=== PATIENT | male | born 1995 | race Two or more races ===

== ENCOUNTER 2022-09-01 22:25 | Emergency (ER) | payer OTHER ==
[~2022-09-01] VITALS: Ht 170.2 cm; Wt 59.0 kg
[2022-09-01 22:40] VITALS: BP 153/87
[2022-09-01 23:19] LABS: Basophils # (auto) 0.1 10 ^3/uL (0-0.2); Basophils % (auto) 0.8 % (0.0-2.0); Eosinophils # (auto) 0.3 10 ^3/uL (0-0.8); Eosinophils % (auto) 5.4 % (0.0-7.0); Hematocrit 47.6 % (41.0-53.0); Hemoglobin 15.6 g/dL (13.5-17.5); Lymphocytes # (auto) 2.3 10 ^3/uL (0.4-5.4); Mean Corpuscular Hgb Conc. 32.7 g/dL (32.0-36.0); Mean Corpuscular Volume 91.8 fL (80.0-100.0); Monocytes # (auto) 0.7 10 ^3/uL (0-1.3); Monocytes % (auto) 11.2 % (0.0-12.0); Neutrophils # (auto) 3.1 10 ^3/uL (1.6-8.6); Neutrophils % (auto) 47.6 % (37.0-80.0); Nucleated Red Blood Cells % 0.2 %; Red Blood Cells 5.19 10^6/uL (4.5-5.90); Red Cell Distribution Width 13.5 % (11.8-14.3); White Blood Cell 6.5 10^3/uL (4.4-10.8)
[2022-09-01 23:39] LABS: Albumin 4.1 g/dL (3.4-5.0); BUN/Creatinine Ratio 14.7; Calcium 9.7 mg/dL (8.5-10.1); Potassium 3.7 mmol/L (3.5-5.1)
[2022-09-01 23:43] LABS: Bilirubin, Total 0.3 mg/dL (0.2-1.0); Total Protein 7.1 g/dL (6.4-8.2)
== END 2022-09-02 04:50 | disposition home or self-care (01) ==
LOC: ER 22:28
DX: R07.89 Other chest pain (principal); R00.2 Palpitations
CPT/HCPCS: 36415; 71045; 80053; 84484; 85025; 93005

== ENCOUNTER 2024-03-05 12:05 | Emergency (ER) | payer MEDICAID ==
[~2024-03-05] VITALS: Ht 170.2 cm; Wt 61.8 kg
[2024-03-05] MEDS ORDERED: NAPR-746 PO (13:18)
[2024-03-05] MEDS ORDERED: CEPH500C PO (13:18)
[2024-03-05 13:31] VITALS: BP 130/89; PULSE 77; RESP 16; TEMP 98.2; O2SAT 98
== END 2024-03-05 13:36 | disposition home or self-care (01) ==
LOC: ER 12:12
DX: I88.9 Nonspecific lymphadenitis, unspecified (principal); H66.91 Otitis media, unspecified, right ear; Z88.0 Allergy status to penicillin; Z79.899 Other long term (current) drug therapy

== ENCOUNTER 2024-03-20 14:09 | Emergency (ER) | payer MEDICAID ==
[~2024-03-20] VITALS: Ht 170.2 cm; Wt 60.0 kg
[~2024-03-20 14:09] MED LIST: CEPH500C PO; NAPR-746 PO
[2024-03-20 15:13] VITALS: BP 107/60; PULSE 75; RESP 18; TEMP 98.2; O2SAT 97
[2024-03-20] MEDS ORDERED: MELO7.5T7 PO (15:17)
== END 2024-03-20 15:23 | disposition home or self-care (01) ==
LOC: ER 14:09
DX: I88.9 Nonspecific lymphadenitis, unspecified (principal); Z88.0 Allergy status to penicillin

== ENCOUNTER 2024-11-03 17:29 | Inpatient (IN) | payer MEDICAID, OTHER ==
[~2024-11-03] VITALS: Ht 170.2 cm; Wt 64.0 kg
[~2024-11-03 17:29] MED LIST changes: +MELO7.5T7 PO
--- NOTE | 2024-11-03 18:08 | ED.PDOC ---
General HPI Comments HPI: Poor Historian. 29-year-old male presents to emergency department for evaluation of right flank pain that started this morning that was severe in nature intermittent. Patient went to the restroom and noted hematuria. This never happened before. Denies any history of kidney stones. Patient had some nausea and some vomiting which has resolved prior to my evaluation. Past Medical History: Past Surgical History: REVIEW OF SYSTEMS: CONSTITUTIONAL: Denies acute: fever, diaphoresis, chills, generalized weakness. HEAD: Denies acute: headache, photophobia Eyes: Denies acute: Double vision, vision loss, eye pain, eye discharge. EARS: Denies acute: tinnitus, hearing loss, ear discharge, ear pain, THROAT: Denies acute: sore throat, swelling, difficulty swallowing , pain with swallowing, change in voice. NECK: Denies acute: neck pain, neck swelling, stiff neck. HEART: Denies acute : chest pain, palpitations, LUNGS: Denies acute: SOB, wheezing, cough, hemoptysis ABDOMEN: Denies acute: abdominal pain, diarrhea, melena , hematemesis, hematochezia SKIN: Denies acute: rash, redness, lesions, itchiness. EXTREMITIES: Denies acute: calf pain, numbness, tingling, weakness, denies pain in extremity. Denies acute: Low back pain. Neuro: Denies acute: focal neurological deficit, motor or sensory focal neurological deficit, tremors, seizure like activity, confusion, dizziness, change in mental status, loss of bowel or bladder function, cauda equina like symptoms. : Denies acute: dysuria, increase in urinary frequency. PSYCH: Denies acute: hallucination, suicidal ideation, homicidal ideation. PHYSICAL EXAM: General: [id number] acute distress, awake and alert. Head: normocephalic, atraumatic. Neck: supple, trachea is midline, no swelling. Throat: Normal phonation. Eyes:, no erythema, no purulent discharge, no proptosis, no icterus. Heart: regular rate, regular rhythm, no significant murmur appreciated. Lungs: no apparent respiratory distress, Able to speak in full sentences. No wheezing, no rhonchi, no crackles. No stridors Clear to auscultation bilaterally. Abdomen: non tender to palpation, non distended, soft, no guarding, no rebound, + bowel sounds. Neuro: Awake, Alert, oriented to name, self, situation, follows commands GCS=15. Speech is normal. Skin: no petechia, no purpura, no cyanosis, non-pale, not jaundice. Lower extremities: --no - Pitting edema no deformity, no focal swelling, no calf TTP. Makes eye contact. moves all four extremities. Face: no apparent facial droop. Right CVA tenderness to percussion Ambulating in the ED independently. ED COURSE: Chief Complaint: Urinary Time Seen by MD: 17:32 Primary Care Provider: HAMIDA Reviewed notes: Nurses Notes, Medications, Allergies Allergies: Coded Allergies: Penicillins (Verified Allergy, Unknown, 03/05/24) Home Meds Active Scripts Meloxicam (Meloxicam) 7.5 Mg Tab, 1 TAB PO DAILYP PRN for 30 Days, #30 TAB 0 Refills Prov:TONNY PENA NP 03/20/24 Cephalexin Monohydrate (Cephalexin) 500 Mg Cap, 1 CAP PO TID, #30 CAP Prov:WILBER RAYGOZA 03/05/24 Naproxen (Naproxen) 500 Mg Tab, 500 MG PO BID, #30 TAB Prov:WILBER RAYGOZA 03/05/24 Information Source: Patient Mode of Arrival: Ambulatory Past Medical History PAST MEDICAL HISTORY: Denies Surgical History: Denies all surgeries Family History Family History: Reviewed,noncontributory to illness Social History Smoker: Non-Smoker Alcohol: Denies ETOH Use Drugs: Denies Drug Use Lives In: Home Was a procedure done? Was a procedure done?: No Differential Diagnosis Kidney stone (Female): N/A Kidney stone (Male): Other (Flank Pain;DDX include Nephrolethiasis, obstructive uropathy, kidney cancer, renal infarct, intraabdominal neoplasm, lower lobe pneumonia, retroperitoneal hemorrhage, pancreatitis, aneurysm, dissection, musculoskeletal, rib contusion/trauma, hematoma, PYLONEPHRITIS, muscle strain, spinal disease. IN A FEMALE) X-Ray, Labs, Meds, VS Vital Signs Date Time Temp Pulse Resp B/P (MAP) Pulse Ox O2 Delivery O2 Flow Rate FiO2 11/03/24 19:53 62 16 96 Room Air* 0 21 11/03/24 19:48 99.0 64 16 117/80 (92) 97 99.0 11/03/24 17:45 98.3 61 18 136/88 (104) 98 98.3 Lab Test 11/03/24 19:37 11/03/24 18:10 Range/Units Urine Color Colorless Yellow Urine Clarity Clear Clear Urine pH 6.0 5.0-9.0 Urine Specific [place] 1.003 1.001-1.035 Urine Protein Negative Negative Urine Ketones Negative Negative Urine Blood 3+ H Negative /uL Urine Nitrite Negative Negative Urine Bilirubin Negative Negative Urine Urobilinogen Normal Negative mg/dL Urine Leukocyte Esterase Negative Negative /uL Urine RBC 3 0 - 3 /hpf Urine Microscopic WBC 1 0-3 /HPF Urine Squamous Epithelial Cells None seen <5 /hpf Urine Bacteria Few H None Seen /hpf Urine Glucose Normal Normal mg/dL White Blood Count 11.4 H 4.4-10.8 10^3/uL Red Blood Count 5.36 4.5-5.90 10^6/uL Hemoglobin 16.1 13.5-17.5 g/dL Hematocrit 48.3 41.0-53.0 % Mean Corpuscular Volume 90.2 80.0-100.0 fL Mean Corpuscular Hemoglobin 30.1 28.0-32.0 pg Mean Corpuscular Hemoglobin Concent 33.4 32.0-36.0 g/dL Red Cell Distribution Width 14.5 H 11.8-14.3 % Platelet Count 185 140-450 10^3/uL Mean Platelet Volume 8.4 6.9-10.8 fL Neutrophils (%) (Auto) 81.8 H 37.0-80.0 % Lymphocytes (%) (Auto) 10.1 10.0-50.0 % Monocytes (%) (Auto) 7.3 0.0-12.0 % Eosinophils (%) (Auto) 0.5 0.0-7.0 % Basophils (%) (Auto) 0.3 0.0-2.0 % Neutrophils # (Auto) 9.4 H 1.6-8.6 10 ^3/uL Lymphocytes # (Auto) 1.2 0.4-5.4 10 ^3/uL Monocytes # (Auto) 0.8 0-1.3 10 ^3/uL Eosinophils # (Auto) 0.1 0-0.8 10 ^3/uL Basophils # (Auto) 0 0-0.2 10 ^3/uL Nucleated Red Blood Cells 0.0 % Sodium Level 136 136-145 mmol/L Potassium Level 3.8 3.5-5.1 mmol/L Chloride Level 101 98-107 mmol/L Carbon Dioxide Level 28 20-31 mmol/L Anion Gap 7 5-15 Blood Urea Nitrogen 12 9-23 mg/dL Creatinine 1.00 0.700-1.30 mg/dL Glomerular Filtration Rate Calc 105 >90 mL/min BUN/Creatinine Ratio 12.0 10.0-20.0 Serum Glucose 129 H 74-106 mg/dL Lactic Acid Level 1.5 0.4-2.0 mmol/L Calcium Level 9.8 8.7-10.4 mg/dL Total Bilirubin 0.5 0.2-1.0 mg/dL Aspartate Amino Transferase (AST) 15 13-40 U/L Alanine Aminotransferase (ALT) 28 7-40 U/L Alkaline Phosphatase 71 46-116 U/L Total Protein 7.2 5.7-8.2 g/dL Albumin 4.7 3.2-4.8 g/dL Current Medications Medications (Trade) Dose Ordered Sig/Julianna Route Start Time Stop Time Status Last Admin Sodium Chloride 1,000 ml @ 1,000 mls/hr Q1H ONCE IV 11/03/24 18:45 11/03/24 19:44 DC 11/03/24 19:47 [place] [id number] Ph: [phone] DIAGNOSTIC IMAGING Diagnostic Imaging Report : [id number] Signed PATIENT: JOANNA HUIZAR MACCT: [id number] UNIT: [id number] : 1995 LOC: ER ROOM / BED: / AGE / SEX: 29 / M ADM STATUS: REG ER SERVICE [id number] ORDERING PHYSICIAN: KAITLYN LIZ DO PROCEDURE(s): ABPL - CT AB PEL WO CON-NO ORAL OR IV REASON: Hematuria, low back pain ORDER NUMBER(s): [id number], ACCESSION NUMBER(s): [id number] Exam: CT CT AB PEL WO CON-NO ORAL OR IV History: Hematuria, low back pain Comparison Study: None available at time of dictation. TECHNIQUE: Multidetector CT of the abdomen was performed from lung bases to pubic symphysis. Imaging was performed without IV contrast. Axial, coronal and sagittal multiplanar reformats were obtained from the axial data set by the technologist. Radiation Dose Information: CT Dose: CTDI volume is 5.22 mGy. Dose-length product is 275.1 mGy*cm FINDINGS: Evaluation of solid organs is limited due to lack of intravenous contrast use. Findings: Lung Bases: No acute or significant lung base finding. Normal heart size. No pleural or pericardial effusion. Liver: The liver is normal in size. No focal lesions. Gallbladder and Biliary Tree: Unremarkable Spleen: Unremarkable Pancreas: The pancreas is grossly normal in appearance. Adrenal Glands: Unremarkable Kidneys: 3 nonobstructing right renal calculi with mild right hydronephrosis and a 5-6 mm calculus in the proximal right ureter. 5 intrarenal calculi on the left largest measures 7-8 mm. Bladder: Grossly unremarkable for degree of distention. Bowel: The stomach is grossly normal in appearance. Small bowel and colon are normal in caliber and distribution. The appendix is not visualized; however, no secondary findings of acute appendicitis identified. Ascites: Absent Lymphadenopathy: No mesenteric, retroperitoneal or periportal lymphadenopathy. Abdominal Wall and Mesentery: Unremarkable. Vasculature: The visualized abdominal aorta is normal in size and caliber. Evaluation of abdominal and pelvic vessels is limited due to lack of intravenous contrast. Pelvic Organs: Unremarkable Musculoskeletal: No aggressive focal bony lesions, acute fractures or dislocation. Soft tissues: Unremarkable IMPRESSION: 1. 3 nonobstructing calculi in the right kidney. There is a 5-6 mm partially obstructing calculus in the proximal right ureter. 2. There are 5 calculi in the left kidney largest measures 7-8 mm. 3. No bladder calculi. Radiation optimization: All CT scans at this facility use at least one of these dose optimization techniques: automated exposure control mA and/or kV adjustment per patient size (includes targeted exams where dose is matched to clinical indication) or iterative reconstruction. ATED BY: BALJINDER CAICEDO Jr., DO DICTATED DATE/TIME: 11/03/241825 SIGNED BY: BALJINDER CAICEDO Jr., DO SIGNED DATE/TIME: 11/03/241825 CC: Time of 1ST Reevaluation: 20:06 Reevaluation 1ST: Improved Patient Education/Counseling: Diagnosis, Treatment Family Education/Counseling: No Family Present Comments Patient presented with the above HPI.-flank pain hematuria-----workup was initiated. patient was found with the above mentioned diagnosis. the following medications were ordered: please refer to order lists of meds and tests obtained by myself Dr. Liz. Patient ED course and VS have been stabilized. Patient has been reassessed in the ED and remained in a stable condition. Pertinent incidental findings were discussed with the patient and/or family. Patient/family voices understanding and is agreeable with plan. Patient has been observed in the ED adequate length of time to insure improvement/stability. Escalation of care considered: Consideration of escalation to observation or admission Patient was ADMITTED to the medicine team for further evaluation and treatment of their presentation. All the reports of any imaging studies that were ordered by myself were reviewed by myself. Departure 1 Departure Time of Disposition: 18:43 Impression: Primary Impression: Urinary tract obstruction by kidney stone Additional Impression: Bacteriuria Disposition: ADMITTED INPATIENT Admit to: Tele Condition: Guarded Discharged With: Self Critical Care Note Critical Care Time?: No KAITLYN LIZ DO Nov 03, 2024 18:08
[2024-11-03 18:26] LABS: Basophils # (auto) 0 10 ^3/uL (0-0.2); Basophils % (auto) 0.3 % (0.0-2.0); Eosinophils # (auto) 0.1 10 ^3/uL (0-0.8); Eosinophils % (auto) 0.5 % (0.0-7.0); Hematocrit 48.3 % (41.0-53.0); Hemoglobin 16.1 g/dL (13.5-17.5); Lymphocytes # (auto) 1.2 10 ^3/uL (0.4-5.4); Lymphocytes % (auto) 10.1 % (10.0-50.0); Mean Corpuscular Hemoglobin 30.1 pg (28.0-32.0); Mean Corpuscular Hgb Conc. 33.4 g/dL (32.0-36.0); Mean Corpuscular Volume 90.2 fL (80.0-100.0); Monocytes # (auto) 0.8 10 ^3/uL (0-1.3); Monocytes % (auto) 7.3 % (0.0-12.0); Neutrophils # (auto) 9.4 10 ^3/uL (1.6-8.6); Neutrophils % (auto) 81.8 % (37.0-80.0); Platelet Count (auto) 185 10^3/uL (140-450); Red Blood Cells 5.36 10^6/uL (4.5-5.90); Red Cell Distribution Width 14.5 % (11.8-14.3); White Blood Cell 11.4 10^3/uL (4.4-10.8)
--- NOTE | 2024-11-03 18:28 | DVH ---
Exam: CT CT AB PEL WO CON-NO ORAL OR IV History: Hematuria, low back pain Comparison Study: None available at time of dictation. TECHNIQUE: Multidetector CT of the abdomen was performed from lung bases to pubic symphysis. Imaging was performed without IV contrast. Axial, coronal and sagittal multiplanar reformats were obtained fr om the axial data set by the technologist. Radiation Dose Information: CT Dose: CTDI volume is 5.22 mGy. Dose-length product is 275.1 mGy*cm FINDINGS: Evaluation of solid organs is limited due to lack of intravenous contrast use. Findings: Lung Bases: No acute or significant lung base finding. Normal heart size. No pleural or pericardial effusion. Liver: The liver is normal in size. No focal lesions. Gallbladder and Biliary Tree: Unremarkable Spleen: Unremarkable Pancreas: The pancreas is grossly normal in appearance. Adrenal Glands: Unremarkable Kidneys: 3 nonobstructing right renal calculi with mild right hydronephrosis and a 5-6 mm calculus in the proximal right ureter. 5 intrarenal calculi on the left largest measures 7-8 mm. Bladder: Grossly unremarkable for degree of distention. Bowel: The stomach is grossly normal in appearance. Small bowel and colon are normal in caliber and d istribution. The appendix is not visualized; however, no secondary findings of acute appendicitis id entified. Ascites: Absent Lymphadenopathy: No mesenteric, retroperitoneal or periportal lymphadenopathy. Abdominal Wall and Mesentery: Unremarkable. Vasculature: The visualized abdominal aorta is normal in size and caliber. Evaluation of abdominal a nd pelvic vessels is limited due to lack of intravenous contrast. Pelvic Organs: Unremarkable Musculoskeletal: No aggressive focal bony lesions, acute fractures or dislocation. Soft tissues: Unremarkable IMPRESSION: 1. 3 nonobstructing calculi in the right kidney. There is a 5-6 mm partially obstructing calculus in the proximal right ureter. 2. There are 5 calculi in the left kidney largest measures 7-8 mm. 3. No bladder calculi. Radiation optimization: All CT scans at this facility use at least one of these dose optimization te chniques: automated exposure control mA and/or kV adjustment per patient size (includes targeted exa ms where dose is matched to clinical indication) or iterative reconstruction.
[2024-11-03 18:44] LABS: Alanine Aminotransferase 28 U/L (7-40); Albumin 4.7 g/dL (3.2-4.8); Alkaline Phosphatase 71 U/L (46-116); Anion Gap 7 (5-15); Aspartate Aminotransferase 15 U/L (13-40); Blood Urea Nitrogen 12 mg/dL (9-23); Calcium 9.8 mg/dL (8.7-10.4); Carbon Dioxide 28 mmol/L (20-31); Chloride 101 mmol/L (98-107); Potassium 3.8 mmol/L (3.5-5.1); Sodium 136 mmol/L (136-145); Total Protein 7.2 g/dL (5.7-8.2)
[2024-11-03 18:45] LABS: Bilirubin, Total 0.5 mg/dL (0.2-1.0)
[2024-11-03 19:08] LABS: Glucose 129 mg/dL (74-106)
[2024-11-03 19:44] LABS: Urine Bacteria FEW /hpf (None Seen); Urine Blood 3+ /uL (Negative); Urine Clarity Clear (Clear); Urine Color Colorless (Yellow); Urine Protein, UAD Negative (Negative); Urine Specific Gravity 1.003 (1.001-1.035); Urine Squamous Epithelial Cell None Seen /hpf (<5); Urine Urobilinogen Normal (Negative); Urine WBC 1 /HPF (0-3)
[2024-11-03] MEDS: fentaNYL CITRATE 100 MCG/2 ML VL IV ONE (19:45)
[2024-11-03] MEDS: ONDANSETRON HCL 4 MG/2 ML VIAL IV ONE (19:46)
[2024-11-03] MEDS: SODIUM CHLORIDE 0.9% 1,000 ML IV ONE (19:47)
[2024-11-03 19:53] VITALS: PULSE 62; RESP 16; O2SAT 96
[2024-11-03] MEDS: TAMSULOSIN HYDROCHLORIDE 0.4 MG CAP PO ONE (20:16)
[2024-11-03] MEDS ORDERED: ONDANSETRON HCL 4 MG/2 ML VIAL IV PRN (21:00)
[2024-11-03] MEDS ORDERED: ACETAMINOPHEN 325 MG TAB PO PRN (21:00)
[2024-11-03] MEDS ORDERED: DOCUSATE SOD 100 MG CAP PO PRN (21:00)
[2024-11-03] MEDS: SODIUM CHLORIDE 0.9% 1,000 ML IV SCH (21:40)
[2024-11-03] MEDS: cefTRIAXone 1GM/50ML D5W 50 ML IV ONE (21:41)
[2024-11-03] MEDS: HYDROcodone-ACET 5/325MG TAB PO PRN (21:51)
--- NOTE | 2024-11-03 22:37 | DVHHP2 ---
History of Present Illness Reason for Visit: Urinary tract obstruction by kidney stone History of Present Illness The patient is a 29-year-old male who denies past medical history presented to [facility] ED with complaint of right flank pain. Patient reports symptoms progressively get worse with hematuria, severe intermittent right flank pain, associated nausea, vomiting, getting worse that prompted this visit. Patient was seen and evaluated in the ED, laboratory data shows WBC 11.4, platelets 185, sodium 136, potassium 3.8, BUN 12, creatinine 1.00, GFR 105, glucose 129 abdomen/pelvis CT revealing 3 mm nonobstructing calculi in the right kidney, is a 5-6 mm partially obstructing calculus in the proximal right ureter five calculi in the left kidney largest measures 7-8 mm, no bladder calculi. Patient was started on IV antibiotic regimen levofloxacin, please see medication orders section in the computer. On my assessment, patient denied chest pain, no headache, no dizziness, abdominal pain, no flank pain, no nausea or vomiting at this moment, no fever, no chills. Patient was admitted for further evaluation medical management. Past Medical History Denies past medical history Past Surgical History Denies all surgeries Family History Reviewed, noncontributory to the management of this case. Past Social History The patient lives at home, denies smoking, alcohol or illicit drugs abuse. Review of Systems Constitutional: No: Fever, Chills, Sweats, Weakness, Malaise, Other Eyes: No: Pain, Vision change, Conjunctivae inflammation, Eyelid inflammation, Other, Redness ENT: No: Ear pain, Ear discharge, Nose pain, Nose discharge, Nose congestion, Mouth pain, Mouth swelling, Throat pain, Throat swelling, Other Respiratory: No: Cough, Dry, Shortness of breath, SOB with excertion, Wheezing, Hemoptysis, Pleuritic Pain, Sputum, Wheezing, Other Cardiovascular: No: Chest Pain, Palpitations, Orthopnea, Paroxysmal Noc. Dyspnea, Edema, Lt Headedness, Other Gastrointestinal: Nausea, Vomiting; No: Abdominal Pain, Diarrhea, Constipation, Melena, Hematochezia, Other Genitourinary: No Dysuria, No Frequency, No Incontinence, No Hematuria, No Retention; Other (Right flank pain) Musculoskeletal: No: other, neck pain, shoulder pain, arm pain, back pain, hand pain, leg pain, foot pain Skin: No: Rash, Lesions, Jaundice, Bruising, Other Neurological: No: Weakness, Numbness, Incoordination, Change in speech, Confusion, Seizures, Other Allergies: Coded Allergies: Penicillins (Verified Allergy, Unknown, 03/05/24) Medications Current Medications Medications Dose Ordered Sig/Julianna Route Start Time Stop Time Status Last Admin Dose Admin Tamsulosin HCl 0.4 mg QPM PO 11/04/24 18:00 Levofloxacin/ Dextrose 100 ml @ 100 mls/hr DAILY IV 11/04/24 10:00 UNV Sodium Chloride 1,000 ml @ 120 mls/hr Q8H20M IV 11/03/24 21:00 11/03/24 21:40 120 MLS/HR Acetaminophen/ Hydrocodone Bitart 1 tab Q4HP PRN PO 11/03/24 21:00 11/03/24 21:51 1 TAB Ondansetron HCl 4 mg Q4HP PRN IV 11/03/24 21:00 Docusate Sodium 100 mg BIDPRN PRN PO 11/03/24 21:00 Acetaminophen 650 mg Q6HP PRN PO 11/03/24 21:00 Morphine Sulfate 2 mg Q4HPRN PRN IV 11/03/24 21:00 Exam Vital Signs Vital Signs Date Time Temp Pulse Resp B/P (MAP) Pulse Ox O2 Delivery O2 Flow Rate FiO2 11/03/24 19:53 62 16 96 Room Air* 0 21 11/03/24 19:48 99.0 117/80 (92) 99.0 General Appearance: Alert, Oriented X3, Cooperative, No acute distress HEENT: Atraumatic, PERRLA, EOMI, Mucous membr. moist/pink Respiratory: Clear to auscultation, Normal air movement Cardiovascular: Regular rate, Normal S1, Normal S2, No murmurs Abdominal: Normal bowel sounds, Soft, No hepatospenomegaly, No masses, Other (Reports tenderness) Extremities: No clubbing, No cyanosis, No edema, Normal pulses, No tenderness/swelling Skin: No rashes, No breakdown, No significant lesion Neuro: Normal gait, Normal speech, Strength at 5/5 X4 ext, Normal tone, Sensation intact, Cranial nerves 3-12 NL, Reflexes 2+ Psych/Mental Status: Mental status NL, Mood NL Labs/Xrays Labs Test 11/03/24 19:37 11/03/24 18:10 Range/Units Urine Color Colorless Yellow Urine Clarity Clear Clear Urine pH 6.0 5.0-9.0 Urine Specific [place] 1.003 1.001-1.035 Urine Protein Negative Negative Urine Ketones Negative Negative Urine Blood 3+ H Negative /uL Urine Nitrite Negative Negative Urine Bilirubin Negative Negative Urine Urobilinogen Normal Negative mg/dL Urine Leukocyte Esterase Negative Negative /uL Urine RBC 3 0 - 3 /hpf Urine Microscopic WBC 1 0-3 /HPF Urine Squamous Epithelial Cells None seen <5 /hpf Urine Bacteria Few H None Seen /hpf Urine Glucose Normal Normal mg/dL White Blood Count 11.4 H 4.4-10.8 10^3/uL Red Blood Count 5.36 4.5-5.90 10^6/uL Hemoglobin 16.1 13.5-17.5 g/dL Hematocrit 48.3 41.0-53.0 % Mean Corpuscular Volume 90.2 80.0-100.0 fL Mean Corpuscular Hemoglobin 30.1 28.0-32.0 pg Mean Corpuscular Hemoglobin Concent 33.4 32.0-36.0 g/dL Red Cell Distribution Width 14.5 H 11.8-14.3 % Platelet Count 185 140-450 10^3/uL Mean Platelet Volume 8.4 6.9-10.8 fL Neutrophils (%) (Auto) 81.8 H 37.0-80.0 % Lymphocytes (%) (Auto) 10.1 10.0-50.0 % Monocytes (%) (Auto) 7.3 0.0-12.0 % Eosinophils (%) (Auto) 0.5 0.0-7.0 % Basophils (%) (Auto) 0.3 0.0-2.0 % Neutrophils # (Auto) 9.4 H 1.6-8.6 10 ^3/uL Lymphocytes # (Auto) 1.2 0.4-5.4 10 ^3/uL Monocytes # (Auto) 0.8 0-1.3 10 ^3/uL Eosinophils # (Auto) 0.1 0-0.8 10 ^3/uL Basophils # (Auto) 0 0-0.2 10 ^3/uL Nucleated Red Blood Cells 0.0 % Sodium Level 136 136-145 mmol/L Potassium Level 3.8 3.5-5.1 mmol/L Chloride Level 101 98-107 mmol/L Carbon Dioxide Level 28 20-31 mmol/L Anion Gap 7 5-15 Blood Urea Nitrogen 12 9-23 mg/dL Creatinine 1.00 0.700-1.30 mg/dL Glomerular Filtration Rate Calc 105 >90 mL/min BUN/Creatinine Ratio 12.0 10.0-20.0 Serum Glucose 129 H 74-106 mg/dL Lactic Acid Level 1.5 0.4-2.0 mmol/L Calcium Level 9.8 8.7-10.4 mg/dL Total Bilirubin 0.5 0.2-1.0 mg/dL Aspartate Amino Transferase (AST) 15 13-40 U/L Alanine Aminotransferase (ALT) 28 7-40 U/L Alkaline Phosphatase 71 46-116 U/L Total Protein 7.2 5.7-8.2 g/dL Albumin 4.7 3.2-4.8 g/dL PATIENT: JOANNA HUIZAR MACCT: [id number] UNIT: [id number] : 1995 LOC: ER ROOM / BED: / AGE / SEX: 29 / M ADM STATUS: REG ER SERVICE [id number] ORDERING PHYSICIAN: KAITLYN LIZ DO PROCEDURE(s): ABPL - CT AB PEL WO CON-NO ORAL OR IV REASON: Hematuria, low back pain ORDER NUMBER(s): [id number], ACCESSION NUMBER(s): [id number] Exam: CT CT AB PEL WO CON-NO ORAL OR IV History: Hematuria, low back pain Comparison Study: None available at time of dictation. TECHNIQUE: Multidetector CT of the abdomen was performed from lung bases to pubic symphysis. Imaging was performed without IV contrast. Axial, coronal and sagittal multiplanar reformats were obtained from the axial data set by the technologist. Radiation Dose Information: CT Dose: CTDI volume is 5.22 mGy. Dose-length product is 275.1 mGy*cm FINDINGS: Evaluation of solid organs is limited due to lack of intravenous contrast use. Findings: Lung Bases: No acute or significant lung base finding. Normal heart size. No pleural or pericardial effusion. Liver: The liver is normal in size. No focal lesions. Gallbladder and Biliary Tree: Unremarkable Spleen: Unremarkable Pancreas: The pancreas is grossly normal in appearance. Adrenal Glands: Unremarkable Kidneys: 3 nonobstructing right renal calculi with mild right hydronephrosis and a 5-6 mm calculus in the proximal right ureter. 5 intrarenal calculi on the left largest measures 7-8 mm. Bladder: Grossly unremarkable for degree of distention. Bowel: The stomach is grossly normal in appearance. Small bowel and colon are normal in caliber and distribution. The appendix is not visualized; however, no secondary findings of acute appendicitis identified. Ascites: Absent Lymphadenopathy: No mesenteric, retroperitoneal or periportal lymphadenopathy. Abdominal Wall and Mesentery: Unremarkable. Vasculature: The visualized abdominal aorta is normal in size and caliber. Evaluation of abdominal and pelvic vessels is limited due to lack of intravenous contrast. Pelvic Organs: Unremarkable Musculoskeletal: No aggressive focal bony lesions, acute fractures or dislocation. Soft tissues: Unremarkable IMPRESSION: 1. 3 nonobstructing calculi in the right kidney. There is a 5-6 mm partially obstructing calculus in the proximal right ureter. 2. There are 5 calculi in the left kidney largest measures 7-8 mm. 3. No bladder calculi. Assessment/Plan Assessment/Plan Urinary tract obstruction by kidney stone Leukocytosis, unspecified Plan 1. Admit to med surge unit 2. Breathing treatment 3. Pain control management 4. IV antibiotic management 5. Management of fluids and electrolytes 6. Consultation for hospitalist 7. Diagnostic test abdomen/pelvis CT 8. DVT prophylaxis on SCDs 9. Repeat labs CBC, CMP in a.m. 10. Home medication reviewed and reconciled 11. Continue with current medical management 12. Treatment plan discussed with patient and RN. Patient verbalized understanding. Plan discussed with: Patient, Other (RN) My Orders Orders - MIGUEL COBIAN DNP Procedure Category Date Status Time Tamsulosin PHA 11/04/24 In Process Hydrochloride (Flomax) 18:00 Levofloxacin 500mg PHA 11/04/24 Logged (Levaquin 500mg/ 100m 10:00 * Urology Consult CONS 11/03/24 Transmitted 20:49 Allergies NOVA 11/03/24 In Process 20:49 Code Status CODE 11/03/24 Transmitted 20:49 2 Gm Sodium Diet DIET 11/04/24 Transmitted Breakfast Sodium Chloride 0.9% PHA 11/03/24 In Process 21:00 Oxygen Per Hour RT 11/03/24 Transmitted 20:49 Hydrocodone-Acet PHA 11/03/24 In Process 5/325mg Tab ([place] 21:00 Ondansetron Hcl PHA 11/03/24 In Process (Zofran) 21:00 Docusate Sodium PHA 11/03/24 In Process Capsule (Colace 21:00 Complete Blood Count LAB 11/04/24 Verified 04:00 Comprehensive LAB 11/04/24 Verified Metabolic Panel 04:00 Condition: Serious NOVA 11/03/24 In Process 20:49 Acetaminophen Tablet PHA 11/03/24 In Process (Tylenol Tablet) 21:00 Bedrest With Bathroom NOVA 11/03/24 In Process Privileg 20:49 Morphine Sulfate PHA 11/03/24 In Process Injection 21:00 Sequential NOVA 11/03/24 In Process Compression Device Problem List: (1) Urinary tract obstruction by kidney stone (2) Leukocytosis, unspecified Date of Service: Nov 03, 2024 Billing Provider: MIGUEL COBIAN DNP Common Visit Codes: 66565-[id number] INP/OBS CARE (HIGH) MIGUEL COBIAN DNP Nov 03, 2024 22:37
[2024-11-03] MEDS ORDERED: NITROGLYCERIN 0.4 MG SL TAB SL PRN (22:45)
[2024-11-03] MEDS ORDERED: MORPHINE SULFATE INJ 2 MG/ml SYRG IV PRN (22:45)
[2024-11-03 23:39] VITALS: BP 130/84; PULSE 80; RESP 20; TEMP 98.2; O2SAT 98
[2024-11-04] VITALS (8 sets, daily range): BP systolic 99–132; BP diastolic 50–86; PULSE 57–76; RESP 16–20; TEMP 98–98.8; O2SAT 97–99
[2024-11-04 06:58] LABS: Basophils # (auto) 0 10 ^3/uL (0-0.2); Basophils % (auto) 0.5 % (0.0-2.0); Eosinophils # (auto) 0.2 10 ^3/uL (0-0.8); Eosinophils % (auto) 3.4 % (0.0-7.0); Hematocrit 42.7 % (41.0-53.0); Hemoglobin 14.4 g/dL (13.5-17.5); Lymphocytes # (auto) 2.9 10 ^3/uL (0.4-5.4); Lymphocytes % (auto) 41.5 % (10.0-50.0); Mean Corpuscular Hemoglobin 30.5 pg (28.0-32.0); Mean Corpuscular Hgb Conc. 33.7 g/dL (32.0-36.0); Mean Corpuscular Volume 90.7 fL (80.0-100.0); Monocytes # (auto) 0.8 10 ^3/uL (0-1.3); Monocytes % (auto) 11.6 % (0.0-12.0); Nucleated Red Blood Cells % 0.1 %; Platelet Count (auto) 177 10^3/uL (140-450); Red Cell Distribution Width 14.8 % (11.8-14.3); White Blood Cell 6.9 10^3/uL (4.4-10.8)
[2024-11-04 07:17] LABS: Alanine Aminotransferase 19 U/L (7-40); Albumin 3.9 g/dL (3.2-4.8); Alkaline Phosphatase 68 U/L (46-116); Anion Gap 8 (5-15); Aspartate Aminotransferase 16 U/L (13-40); BUN/Creatinine Ratio 11.7 (10.0-20.0); Bilirubin, Total 0.4 mg/dL (0.2-1.0); Blood Urea Nitrogen 9 mg/dL (9-23); Calcium 9.1 mg/dL (8.7-10.4); Carbon Dioxide 24 mmol/L (20-31); Glucose 99 mg/dL (74-106); Potassium 3.6 mmol/L (3.5-5.1); Sodium 140 mmol/L (136-145); Total Protein 5.9 g/dL (5.7-8.2)
[2024-11-04 07:18] LABS: Chloride 108 mmol/L (98-107)
[2024-11-04] MEDS ORDERED: levoFLOXacin 500MG 100 ML IV SCH (10:00)
--- NOTE | 2024-11-04 11:52 | DVHPN2 ---
Subjective The patient is seen and examined at bedside. Complain of abdominal and flank pain. Reviewed: Care Plan, H&P, Labs, Medications, Previous Orders, Radiology Changes from previous H/P or p: No Changes Eyes: No Pain, No Vision change, No Conjunctivae inflammation, No Eyelid inflammation, No Other, No Redness ENT: No Ear pain, No Ear discharge, No Nose pain, No Nose discharge, No Nose congestion, No Mouth pain, No Mouth swelling, No Throat pain, No Throat swelling, No Other Cardiovascular: No Chest Pain, No Palpitations, No Orthopnea, No Paroxysmal Noc. Dyspnea, No Edema, No Lt Headedness, No Other Respiratory: No Cough, No Dry, No Shortness of breath, No SOB with excertion, No Wheezing, No Hemoptysis, No Pleuritic Pain, No Sputum, No Other Gastrointestinal: Nausea, Vomiting; No Abdominal Pain, No Diarrhea, No Constipation, No Melena, No Hematochezia, No Other Genitourinary: No Dysuria, No Frequency, No Incontinence, No Hematuria, No Retention; Other (Right flank pain) Musculoskeletal: No other, No neck pain, No shoulder pain, No arm pain, No back pain, No hand pain, No leg pain, No foot pain Skin: No Rash, No Lesions, No Jaundice, No Bruising, No Other Objective Vitals Vital Signs Date Time Temp Pulse Resp B/P (MAP) Pulse Ox O2 Delivery O2 Flow Rate FiO2 11/04/24 09:00 98.0 71 16 99/50 (66) 98 98.0 11/03/24 23:39 Room Air* 0 21 Intake/Output Intake and Output 11/04/24 07:00 Intake Total 1320 ml Output Total 0 ml Balance 1320 ml Intake Oral 200 ml IV Total 1120 ml Output Urine Total 0 ml General Appearance: Alert, Oriented X3, Cooperative, No acute distress HEENT: Atraumatic, PERRLA, EOMI, Mucous membr. moist/pink Neck: Supple Lungs: Clear to auscultation, Normal air movement Cardiovascular: Regular rate, Normal S1, Normal S2, No murmurs, Gallops, Rubs Abdomen: Normal bowel sounds, Soft, No tenderness Neuro: Cranial nerves 3-12 NL Psych/Mental Status: Mental status NL Medications Current Medications Medications Dose Ordered Sig/Julianna Route Start Time Stop Time Status Last Admin Dose Admin Tamsulosin HCl 0.4 mg QPM PO 11/04/24 18:00 Levofloxacin/ Dextrose 100 ml @ 100 mls/hr DAILY IV 11/04/24 10:00 Sodium Chloride 1,000 ml @ 120 mls/hr Q8H20M IV 11/03/24 21:00 11/04/24 05:31 120 MLS/HR Acetaminophen/ Hydrocodone Bitart 1 tab Q4HP PRN PO 11/03/24 21:00 11/04/24 05:31 1 TAB Ondansetron HCl 4 mg Q4HP PRN IV 11/03/24 21:00 Docusate Sodium 100 mg BIDPRN PRN PO 11/03/24 21:00 Acetaminophen 650 mg Q6HP PRN PO 11/03/24 21:00 Morphine Sulfate 2 mg Q4HPRN PRN IV 11/03/24 21:00 Nitroglycerin 0.4 mg Q5MINP PRN SL 11/03/24 22:45 Morphine Sulfate 2 mg Q30M PRN IV 11/03/24 22:45 Laboratory Results Laboratory Tests 11/04/24 06:19 Chemistry Test 11/03/24 18:10 11/04/24 06:19 Albumin 4.7 g/dL (3.2-4.8) 3.9 g/dL (3.2-4.8) Calcium Level 9.8 mg/dL (8.7-10.4) 9.1 mg/dL (8.7-10.4) Total Protein 7.2 g/dL (5.7-8.2) 5.9 g/dL (5.7-8.2) LFT Test 11/03/24 18:10 11/04/24 06:19 Alanine Aminotransferase (ALT) 28 U/L (7-40) 19 U/L (7-40) Alkaline Phosphatase 71 U/L (46-116) 68 U/L (46-116) Aspartate Amino Transferase (AST) 15 U/L (13-40) 16 U/L (13-40) Total Bilirubin 0.5 mg/dL (0.2-1.0) 0.4 mg/dL (0.2-1.0) Urinalysis Test 11/03/24 19:37 Urine Color Colorless (Yellow) Urine Clarity Clear (Clear) Urine pH 6.0 (5.0-9.0) Urine Specific [place] 1.003 (1.001-1.035) Urine Protein Negative (Negative) Urine Ketones Negative (Negative) Urine Blood 3+ /uL (Negative) H Urine Nitrite Negative (Negative) Urine Bilirubin Negative (Negative) Urine Urobilinogen Normal mg/dL (Negative) Urine Leukocyte Esterase Negative /uL (Negative) Urine RBC 3 /hpf (0 - 3) Urine Microscopic WBC 1 /HPF (0-3) Urine Squamous Epithelial Cells None seen /hpf (<5) Urine Bacteria Few /hpf (None Seen) H Urine Glucose Normal mg/dL (Normal) Labs and/or images reviewed: Labs reviewed by me Assessment/Plan Assessment/Plan Obstructive uropathy Multiple nephrolithiasis Leukocytosis UTI Continuing current management. Continuing with IV antibiotic. Continuing with IV fluid. Continuing with IV pain medication. We will follow up with culture and left. Waiting for urologist to see the patient. This medical document was created using an electronic medical record system with [employer] direct computerized dictation system. Although this document has been carefully reviewed, there may still be some phonetic and typographical errors. These areas are purely typographical due to imperfections of the software programs, and do not reflect any compromise in the patient's medical care. Plan discussed with: Patient, Spouse Date of Service: Nov 04, 2024 Billing Provider: DAVID VITAL MD Common Visit Codes: [id number] INP/OBS CARE(HIGH) DAVID VITAL MD Nov 04, 2024 11:52
[2024-11-04] MEDS: cefTRIAXone 1GM/50ML D5W 50 ML IV ONE (17:37)
[2024-11-04] MEDS: TAMSULOSIN HYDROCHLORIDE 0.4 MG CAP PO SCH (19:48)
[2024-11-05 01:00] VITALS: BP 110/72; PULSE 61; RESP 18; TEMP 98.2; O2SAT 97
[2024-11-05 04:59] VITALS: BP 113/52; PULSE 70; RESP 20; TEMP 97.5; O2SAT 97
[2024-11-05 08:29] VITALS: BP 100/56; PULSE 68; RESP 20; TEMP 97.9; O2SAT 95
[2024-11-05] MEDS: cefTRIAXone 1GM/50ML D5W 50 ML IV SCH (09:25)
[2024-11-05 12:38] VITALS: BP 106/60; PULSE 62; RESP 20; TEMP 98.2; O2SAT 98
--- NOTE | 2024-11-05 13:03 | DVHINCON2 ---
Date of service: Nov 05, 2024 Referring Physician Hospitalist Reason for Consultation Flank pain History of Present Illness 29-year-old male who denies past medical history presented to [facility] ED with complaint of right flank pain. Patient reports symptoms progressively get worse with hematuria, severe intermittent right flank pain, associated nausea, vomiting, getting worse that prompted this visit. Patient was seen and evaluated in the ED, laboratory data shows WBC 11.4, platelets 185, sodium 136, potassium 3.8, BUN 12, creatinine 1.00, GFR 105, glucose 129 abdomen/pelvis CT revealing 3 mm nonobstructing calculi in the right kidney, is a 5-6 mm partially obstructing calculus in the proximal right ureter five calculi in the left kidney largest measures 7-8 mm, no bladder calculi. Patient was started on IV antibiotic regimen levofloxacin, please see medication orders section in the computer. On my assessment, patient denied chest pain, no headache, no dizziness, abdominal pain, no flank pain, no nausea or vomiting at this moment, no fever, no chills. Patient was admitted for further evaluation medical management. Past Medical History NA Past Surgical History NA Family History: Patient reports no known family medical history. Allergies: Coded Allergies: Penicillins (Verified Allergy, Unknown, 03/05/24) Home Meds No Active Prescriptions or Reported Meds Current Medications Current Medications Medications (Trade) Dose Ordered Sig/Julianna Route PRN Reason Start Time Stop Time Status Last Admin Tamsulosin HCl (Flomax) 0.4 mg QPM PO 11/04/24 18:00 11/04/24 19:48 Ceftriaxone Sodium 50 ml @ 100 mls/hr DAILY@09 IV 11/05/24 09:00 11/05/24 09:25 Review of Systems Constitutional: No: Fever, Chills, Sweats, Weakness, Malaise, Other Eyes: No: Pain, Vision change, Conjunctivae inflammation, Eyelid inflammation, Other, Redness ENT: No: Ear pain, Ear discharge, Nose pain, Nose discharge, Nose congestion, Mouth pain, Mouth swelling, Throat pain, Throat swelling, Other Respiratory: No: Cough, Dry, Shortness of breath, SOB with excertion, Wheezing, Hemoptysis, Pleuritic Pain, Sputum, Wheezing, Other Cardiovascular: No: Chest Pain, Palpitations, Orthopnea, Paroxysmal Noc. Dyspnea, Edema, Lt Headedness, Other Gastrointestinal: Nausea, Vomiting; No: Abdominal Pain, Diarrhea, Constipation, Melena, Hematochezia, Other Genitourinary: No Dysuria, No Frequency, No Incontinence, No Hematuria, No Retention; Other (Right flank pain) Musculoskeletal: No: other, neck pain, shoulder pain, arm pain, back pain, hand pain, leg pain, foot pain Skin: No: Rash, Lesions, Jaundice, Bruising, Other Neurological: No: Weakness, Numbness, Incoordination, Change in speech, Confusion, Seizures, Other Allergies: Coded Allergies: Penicillins (Verified Allergy, Unknown, 03/05/24) Medications Current Medications Medications Dose Ordered Sig/Julianna Route Start Time Stop Time Status Last Admin Dose Admin Tamsulosin HCl 0.4 mg QPM PO 11/04/24 18:00 Levofloxacin/ Dextrose 100 ml @ 100 mls/hr DAILY IV 11/04/24 10:00 UNV Sodium Chloride 1,000 ml @ 120 mls/hr Q8H20M IV 11/03/24 21:00 11/03/24 21:40 120 MLS/HR Acetaminophen/ Hydrocodone Bitart 1 tab Q4HP PRN PO 11/03/24 21:00 11/03/24 21:51 1 TAB Ondansetron HCl 4 mg Q4HP PRN IV 11/03/24 21:00 Docusate Sodium 100 mg BIDPRN PRN PO 11/03/24 21:00 Acetaminophen 650 mg Q6HP PRN PO 11/03/24 21:00 Morphine Sulfate 2 mg Q4HPRN PRN IV 11/03/24 21:00 Vital Signs Vital Signs Date Time Temp Pulse Resp B/P (MAP) Pulse Ox O2 Delivery O2 Flow Rate FiO2 11/05/24 12:38 98.2 62 20 106/60 (75) 98 98.2 11/05/24 08:00 Room Air* 0 21 Physical Exam Vital Signs Date Time Temp Pulse Resp B/P (MAP) Pulse Ox O2 Delivery O2 Flow Rate FiO2 11/03/24 19:53 62 16 96 Room Air* 0 21 11/03/24 19:48 99.0 117/80 (92) 99.0 General Appearance: Alert, Oriented X3, Cooperative, No acute distress HEENT: Atraumatic, PERRLA, EOMI, Mucous membr. moist/pink Respiratory: Clear to auscultation, Normal air movement Cardiovascular: Regular rate, Normal S1, Normal S2, No murmurs Abdominal: Normal bowel sounds, Soft, No hepatospenomegaly, No masses, Other (Reports tenderness) Extremities: No clubbing, No cyanosis, No edema, Normal pulses, No tenderness/s welling Skin: No rashes, No breakdown, No significant lesion Neuro: Normal gait, Normal speech, Strength at 5/5 X4 ext, Normal tone, Sensation intact, Cranial nerves 3-12 NL, Reflexes 2+ Psych/Mental Status: Mental status NL, Mood NL Labs/Diagnostic Data Labs Test 11/04/24 06:19 11/03/24 19:37 11/03/24 18:10 Range/Units White Blood Count 6.9 # 4.4-10.8 10^3/uL Red Blood Count 4.70 4.5-5.90 10^6/uL Hemoglobin 14.4 13.5-17.5 g/dL Hematocrit 42.7 # 41.0-53.0 % Mean Corpuscular Volume 90.7 80.0-100.0 fL Mean Corpuscular Hemoglobin 30.5 28.0-32.0 pg Mean Corpuscular Hemoglobin Concent 33.7 32.0-36.0 g/dL Red Cell Distribution Width 14.8 H 11.8-14.3 % Platelet Count 177 140-450 10^3/uL Mean Platelet Volume 8.5 6.9-10.8 fL Neutrophils (%) (Auto) 43.0 37.0-80.0 % Lymphocytes (%) (Auto) 41.5 10.0-50.0 % Monocytes (%) (Auto) 11.6 0.0-12.0 % Eosinophils (%) (Auto) 3.4 0.0-7.0 % Basophils (%) (Auto) 0.5 0.0-2.0 % Neutrophils # (Auto) 3.0 1.6-8.6 10 ^3/uL Lymphocytes # (Auto) 2.9 0.4-5.4 10 ^3/uL Monocytes # (Auto) 0.8 0-1.3 10 ^3/uL Eosinophils # (Auto) 0.2 0-0.8 10 ^3/uL Basophils # (Auto) 0 0-0.2 10 ^3/uL Nucleated Red Blood Cells 0.1 % Sodium Level 140 136-145 mmol/L Potassium Level 3.6 3.5-5.1 mmol/L Chloride Level 108 H 98-107 mmol/L Carbon Dioxide Level 24 20-31 mmol/L Anion Gap 8 5-15 Blood Urea Nitrogen 9 9-23 mg/dL Creatinine 0.77 0.700-1.30 mg/dL Glomerular Filtration Rate Calc 125 >90 mL/min BUN/Creatinine Ratio 11.7 10.0-20.0 Serum Glucose 99 74-106 mg/dL Calcium Level 9.1 8.7-10.4 mg/dL Total Bilirubin 0.4 0.2-1.0 mg/dL Aspartate Amino Transferase (AST) 16 13-40 U/L Alanine Aminotransferase (ALT) 19 7-40 U/L Alkaline Phosphatase 68 46-116 U/L Total Protein 5.9 5.7-8.2 g/dL Albumin 3.9 3.2-4.8 g/dL Urine Color Colorless Yellow Urine Clarity Clear Clear Urine pH 6.0 5.0-9.0 Urine Specific [place] 1.003 1.001-1.035 Urine Protein Negative Negative Urine Ketones Negative Negative Urine Blood 3+ H Negative /uL Urine Nitrite Negative Negative Urine Bilirubin Negative Negative Urine Urobilinogen Normal Negative mg/dL Urine Leukocyte Esterase Negative Negative /uL Urine RBC 3 0 - 3 /hpf Urine Microscopic WBC 1 0-3 /HPF Urine Squamous Epithelial Cells None seen <5 /hpf Urine Bacteria Few H None Seen /hpf Urine Glucose Normal Normal mg/dL Lactic Acid Level 1.5 0.4-2.0 mmol/L Assessment Right ureteral calculus 6 mm Left renal calculi, multiple and nonobstructing Plan/Recommendation Pain is controlled currently with narcotics Expulsive measures and outpatient management with [facility] TBA Patient is moving to [place] next week and I advised him to follow up with urology there. Plan discussed with: Patient, Other DEBORA ANDREW MD Nov 05, 2024 13:03
[2024-11-05] MEDS: MORPHINE SULFATE INJ 2 MG/ml SYRG IV PRN (13:28)
--- NOTE | 2024-11-05 13:54 | DVHPN2 ---
Subjective The patient is seen and examined at bedside. Complain of abdominal and flank pain. Reviewed: Care Plan, H&P, Labs, Medications, Previous Orders, Radiology Eyes: No Pain, No Vision change, No Conjunctivae inflammation, No Eyelid inflammation, No Other, No Redness ENT: No Ear pain, No Ear discharge, No Nose pain, No Nose discharge, No Nose congestion, No Mouth pain, No Mouth swelling, No Throat pain, No Throat swelling, No Other Cardiovascular: No Chest Pain, No Palpitations, No Orthopnea, No Paroxysmal Noc. Dyspnea, No Edema, No Lt Headedness, No Other Respiratory: No Cough, No Dry, No Shortness of breath, No SOB with excertion, No Wheezing, No Hemoptysis, No Pleuritic Pain, No Sputum, No Other Gastrointestinal: Nausea, Vomiting; No Abdominal Pain, No Diarrhea, No Constipation, No Melena, No Hematochezia, No Other Genitourinary: No Dysuria, No Frequency, No Incontinence, No Hematuria, No Retention; Other (Right flank pain) Musculoskeletal: No other, No neck pain, No shoulder pain, No arm pain, No back pain, No hand pain, No leg pain, No foot pain Skin: No Rash, No Lesions, No Jaundice, No Bruising, No Other Objective Vitals Vital Signs Date Time Temp Pulse Resp B/P (MAP) Pulse Ox O2 Delivery O2 Flow Rate FiO2 11/05/24 13:28 62 20 106/60 11/05/24 12:38 98.2 98 98.2 11/05/24 08:00 Room Air* 0 21 Intake/Output Intake and Output 11/05/24 07:00 Intake Total 2200 ml Output Total 1850 ml Balance 350 ml Intake Oral 2200 ml Output Urine Total 1850 ml General Appearance: Alert, Oriented X3, Cooperative, No acute distress HEENT: Atraumatic, PERRLA, EOMI, Mucous membr. moist/pink Neck: Supple Lungs: Clear to auscultation, Normal air movement Cardiovascular: Regular rate, Normal S1, Normal S2, No murmurs, Gallops, Rubs Abdomen: Normal bowel sounds, Soft, No tenderness Neuro: Cranial nerves 3-12 NL Psych/Mental Status: Mental status NL Medications Current Medications Medications Dose Ordered Sig/Julianna Route Start Time Stop Time Status Last Admin Dose Admin Tamsulosin HCl 0.4 mg QPM PO 11/04/24 18:00 11/04/24 19:48 0.4 MG Sodium Chloride 1,000 ml @ 120 mls/hr Q8H20M IV 11/03/24 21:00 11/05/24 06:20 120 MLS/HR Acetaminophen/ Hydrocodone Bitart 1 tab Q4HP PRN PO 11/03/24 21:00 11/05/24 07:48 1 TAB Ondansetron HCl 4 mg Q4HP PRN IV 11/03/24 21:00 Docusate Sodium 100 mg BIDPRN PRN PO 11/03/24 21:00 Acetaminophen 650 mg Q6HP PRN PO 11/03/24 21:00 Morphine Sulfate 2 mg Q4HPRN PRN IV 11/03/24 21:00 11/05/24 13:28 2 MG Nitroglycerin 0.4 mg Q5MINP PRN SL 11/03/24 22:45 Morphine Sulfate 2 mg Q30M PRN IV 11/03/24 22:45 Ceftriaxone Sodium 50 ml @ 100 mls/hr DAILY@09 IV 11/05/24 09:00 11/05/24 09:25 100 MLS/HR Laboratory Results Laboratory Tests 11/04/24 06:19 Urinalysis Test 11/03/24 19:37 Urine Color Colorless (Yellow) Urine Clarity Clear (Clear) Urine pH 6.0 (5.0-9.0) Urine Specific [place] 1.003 (1.001-1.035) Urine Protein Negative (Negative) Urine Ketones Negative (Negative) Urine Blood 3+ /uL (Negative) H Urine Nitrite Negative (Negative) Urine Bilirubin Negative (Negative) Urine Urobilinogen Normal mg/dL (Negative) Urine Leukocyte Esterase Negative /uL (Negative) Urine RBC 3 /hpf (0 - 3) Urine Microscopic WBC 1 /HPF (0-3) Urine Squamous Epithelial Cells None seen /hpf (<5) Urine Bacteria Few /hpf (None Seen) H Urine Glucose Normal mg/dL (Normal) Assessment/Plan Assessment/Plan Obstructive uropathy Multiple nephrolithiasis Leukocytosis UTI Continuing current management. Continuing with IV antibiotic. Continuing with IV fluid. Continuing with IV pain medication. We will follow up with culture and left. Waiting for urologist to see the patient. This medical document was created using an electronic medical record system with [employer] direct computerized dictation system. Although this document has been carefully reviewed, there may still be some phonetic and typographical errors. These areas are purely typographical due to imperfections of the software programs, and do not reflect any compromise in the patient's medical care. My Orders Orders - DAVID VITAL MD Procedure Category Date Status Time Ceftriaxone 1gm/50ml PHA 11/05/24 In Process D5w (Rocephin) 09:00 DAVID VITAL MD Nov 05, 2024 13:54
[2024-11-05] MEDS ORDERED: TAMS-35 PO (13:55)
[2024-11-05] MEDS ORDERED: HYDR-4902 PO (13:55)
--- NOTE | 2024-11-05 13:58 | DVHDS2 ---
Discharge Summary Date of Admission Nov 03, 2024 at 22:34 Date of Discharge: Nov 05, 2024 Admitting Diagnosis Obstructive uropathy Multiple nephrolithiasis Leukocytosis UTI Labs/Diagnostic Data: Laboratory Results Test 11/04/24 06:19 11/03/24 19:37 11/03/24 18:10 White Blood Count 6.9 10^3/uL (4.4-10.8) Red Blood Count 4.70 10^6/uL (4.5-5.90) Hemoglobin 14.4 g/dL (13.5-17.5) Hematocrit 42.7 % (41.0-53.0) Mean Corpuscular Volume 90.7 fL (80.0-100.0) Mean Corpuscular Hemoglobin 30.5 pg (28.0-32.0) Mean Corpuscular Hemoglobin Concent 33.7 g/dL (32.0-36.0) Red Cell Distribution Width 14.8 % (11.8-14.3) Platelet Count 177 10^3/uL (140-450) Mean Platelet Volume 8.5 fL (6.9-10.8) Neutrophils (%) (Auto) 43.0 % (37.0-80.0) Lymphocytes (%) (Auto) 41.5 % (10.0-50.0) Monocytes (%) (Auto) 11.6 % (0.0-12.0) Eosinophils (%) (Auto) 3.4 % (0.0-7.0) Basophils (%) (Auto) 0.5 % (0.0-2.0) Neutrophils # (Auto) 3.0 10 ^3/uL (1.6-8.6) Lymphocytes # (Auto) 2.9 10 ^3/uL (0.4-5.4) Monocytes # (Auto) 0.8 10 ^3/uL (0-1.3) Eosinophils # (Auto) 0.2 10 ^3/uL (0-0.8) Basophils # (Auto) 0 10 ^3/uL (0-0.2) Nucleated Red Blood Cells 0.1 % Sodium Level 140 mmol/L (136-145) Potassium Level 3.6 mmol/L (3.5-5.1) Chloride Level 108 mmol/L (98-107) Carbon Dioxide Level 24 mmol/L (20-31) Anion Gap 8 (5-15) Blood Urea Nitrogen 9 mg/dL (9-23) Creatinine 0.77 mg/dL (0.700-1.30) Glomerular Filtration Rate Calc 125 mL/min (>90) BUN/Creatinine Ratio 11.7 (10.0-20.0) Serum Glucose 99 mg/dL (74-106) Calcium Level 9.1 mg/dL (8.7-10.4) Total Bilirubin 0.4 mg/dL (0.2-1.0) Aspartate Amino Transferase (AST) 16 U/L (13-40) Alanine Aminotransferase (ALT) 19 U/L (7-40) Alkaline Phosphatase 68 U/L (46-116) Total Protein 5.9 g/dL (5.7-8.2) Albumin 3.9 g/dL (3.2-4.8) Urine Color Colorless (Yellow) Urine Clarity Clear (Clear) Urine pH 6.0 (5.0-9.0) Urine Specific [place] 1.003 (1.001-1.035) Urine Protein Negative (Negative) Urine Ketones Negative (Negative) Urine Blood 3+ /uL (Negative) Urine Nitrite Negative (Negative) Urine Bilirubin Negative (Negative) Urine Urobilinogen Normal mg/dL (Negative) Urine Leukocyte Esterase Negative /uL (Negative) Urine RBC 3 /hpf (0 - 3) Urine Microscopic WBC 1 /HPF (0-3) Urine Squamous Epithelial Cells None seen /hpf (<5) Urine Bacteria Few /hpf (None Seen) Urine Glucose Normal mg/dL (Normal) Lactic Acid Level 1.5 mmol/L (0.4-2.0) Other Laboratory Tests 11/04/24 06:19 Brief Hx & Hospital Course: This is a 29 years old male with no known past medical history come to emergency department because of right flank pain. Patient also had hematuria and severe intermittent right flank pain 10/10. The pain associated with nausea and vomiting. The patient was found to have WBC of 11.4. CT abdomen pelvis showed 3 mm of non obstructing calculi on the right kidney. There is a is a 5-6 mm partially obstructing calculus in the proximal right ureter five calculi in the left kidney largest measures 7-8 mm, no bladder calculi. Patient was started on IV antibiotic regimen levofloxacin. The patient also was started on IV fluid. Dr. Gordon, urology see the patient and recommend Expulsive measures with mannitol and Flomax. He also recommend outpatient management with [facility] . Patient is moving to [place] next week and we advised him to follow up with urology there. I am going to discharge the patient home today. Activity as tolerated. Diet per home diet. Recommend low protein low-salt diet. Follow up with Urology in [place] when he move there. Follow up with primary care physician 1-2 weeks. Physical exam: HEENT: Normocephalic atraumatic pupils equal react to light and accommodation. Extraocular muscles intact, conjunctiva pink, oropharynx moist, no thrush, no exudate. Lymphatic: No lymphadenopathy Cardiovascular exam: S1, S2 was heard. No murmurs, rubs, gallops Lung: Clear on auscultation bilaterally, no wheeze, rale, rhonchi. GI: Abdominal soft, nondistended, nontenderness, positive bowel sounds. Extremity: No crepitus, cyanosis, edema. Pedal pulses present bilateral. Full range of motion. Skin: Normal turgor, no rash. Psych: Alert, oriented x3. Neurology: No focal deficits, cranial nerve II to XII grossly intact. This medical document was created using an electronic medical record system with [employer] computerized dictation system. Although this document has been carefully reviewed, there may still be some phonetic and typographical errors. These areas are purely typographical due to imperfections of the software programs, and do not reflect any compromise in the patient's medical care. Condition at Discharge: Stable Final Diagnosis/Problems List Obstructive uropathy Multiple nephrolithiasis Leukocytosis UTI Discharge Disposition: Home Discharge Instruct/Medications Diet: Regular Diet comment: low salt, low protein diet Activity: No Restrictions, As Tolerated Follow Up/Referral: pcp 1=2 weeks Urologist in [place] per schedule Medications: norco 5/325 one tab PO q4PRN flomax 0.4 mg PO daily Discharge Statement: "Patient was advised to return to the ER or call 911 if any headaches, dizziness, shortness of breath, chest pain, abdominal pain, bleeding, fevers, or worsening of medical condition. Patient was counseled about treatment plan, medications, possible side effects, patientverbalized understanding. All questions were answered to the best of my ability. This discharge took greater then 30 minutes in planning, reviewing documentation, counseling the patient, and discussing with other team members." ASSESSMENT ASSESSMENT Assessment kidney stones Date of Service: Nov 05, 2024 Billing Provider: DAVID VITAL MD Common Visit Codes: [id number] DISCH DAY >30min DAVID VITAL MD Nov 05, 2024 13:58
[2024-11-05 15:09] VITALS: BP 106/60; PULSE 62; RESP 20; TEMP 98.2; O2SAT 98
== END 2024-11-05 15:39 | disposition home or self-care (01) | DRG 465 ==
LOC: ER 17:29 → OVERFLOW 22:34 → WEST WING 23:30
PROVIDERS: ADMIT Internal Medicine; ATTEND Internal Medicine
DX: N20.2 Calculus of kidney with calculus of ureter (principal); D72.829 Elevated white blood cell count, unspecified; N39.0 Urinary tract infection, site not specified; N13.9 Obstructive and reflux uropathy, unspecified; Z88.0 Allergy status to penicillin; Z79.899 Other long term (current) drug therapy
CPT/HCPCS: 36415; 74176; 80053; 81001; 83605; 85025; 96365; G0378; J1956